=== PATIENT | male | born 1975 | race African-American/Black ===

== ENCOUNTER 2016-12-16 15:43 | Emergency (ER) | payer SELFPAY ==
[~2016-12-16] VITALS: Ht 175.3 cm; Wt 75.3 kg
--- NOTE | 2016-12-16 16:14 | RAD ---
Portable chest, 12/16/2016: History: Chest pain and weakness The heart size and pulmonary vascularity are normal. No pulmonary infiltrates are seen. There is no evidence of pleural fluid. IMPRESSION: No acute cardiopulmonary abnormality is detected.
[2016-12-16 16:57] LABS: BASO # 0.1 x10^3/uL (0.0-0.2); BASO % 2 % (0-3); EOS % 9 % (0-3); HEMATOCRIT 42.7 % (39.0-53.0); HEMOGLOBIN 14.5 g/dL (13.0-17.5); LYMPH # 1.8 x10^3/uL (1.0-4.8); LYMPH % 35 % (24-48); MEAN CORPUSCULAR HEMOGLOBIN 30 pg (25-35); MEAN CORPUSCULAR HGB CONC 34 g/dL (31-37); MEAN CORPUSCULAR VOLUME 89 fL (79-100); MONO % 6 % (0-9); NEUT % 48 % (31-73); PLATELET COUNT 210 x10^3/uL (140-400); RED BLOOD COUNT 4.81 x10^6/uL (4.30-5.70); RED CELL DISTRIBUTION WIDTH 12.6 % (11.5-14.5); WHITE BLOOD COUNT 5.2 x10^3/uL (4.0-11.0)
[2016-12-16 17:08] LABS: CALCIUM 10.1 mg/dL (8.5-10.1); CREATININE 1.1 mg/dL (0.7-1.3); GFR 73.1
--- NOTE | 2016-12-16 17:33 | RAD ---
PROCEDURE CT scan of the head without contrast 12/16/2016 HISTORY Dizziness since earlier today. TECHNIQUE Unenhanced contiguous, 5 millimeter axial sections were obtained through the head. One or more of the following individualized dose reduction techniques were utilized for this study: 1. Automated exposure control. 2. Adjustment of the mA and/or kV according to patient size. 3. Use of iterative reconstruction technique. FINDINGS The ventricles and sulci are within normal limits in size and configuration. No area of abnormal attenuation is seen involving the brain parenchyma. No extra-axial fluid collection is seen. No skull fracture is noted. IMPRESSION Negative study. Electronically signed by: Biju Olson MD (Dec 16, 2016 17:31:44)
[2016-12-16 17:36] LABS: OBC FLU VALID
[2016-12-16] MEDS ORDERED: METOCLOPRAMIDE HCL 10 MG/2 ML VIAL. IV ONE (17:45)
[2016-12-16] MEDS ORDERED: IV NORMAL SALINE 1000ML BAG 1,000 ML IV ONE (17:45)
[2016-12-16] MEDS ORDERED: DIPHENHYDRAMINE 50 MG/ML VIAL IVP ONE (17:45)
[2016-12-16] MEDS ORDERED: DEXAMETHASONE SOD PHOS 20 MG/5 ML VIAL. IV ONE (17:45)
[2016-12-16] MEDS ORDERED: KETOROLAC TROMETHAMINE 30 MG/ML SYRINGE. IV ONE (17:45)
--- NOTE | 2016-12-16 18:44 | PHYS DOC ---
Past Medical History Past Medical History: Diabetes-Type II, High Cholesterol, Hypertension Past Surgical History: No Surgical History Alcohol Use: Occasionally Drug Use: None Adult General Chief Complaint Chief Complaint: CHEST PAIN HPI HPI 41-year-old male who is coming in with significant headache and dizziness for the last several days. Daughter at bedside states the patient's been seen multiple times for this complaint. She has had imaging multiple times. He states his symptoms really haven't improved and have been there for the last year. He denies any trauma and he states he does have significant dizziness with movement. He denies any fever or chills. He denies any neck tenderness. He has history of HTN and DM-II for which he takes medications for. Review of Systems Review of Systems Constitutional: Denies fever or chills [] Eyes: Denies change in visual acuity, redness, or eye pain [] HENT: Denies nasal congestion or sore throat [] Respiratory: Denies cough or shortness of breath [] Cardiovascular: No additional information not addressed in HPI [] GI: Denies abdominal pain, has nausea, has vomiting, denies bloody stools or diarrhea [] : Denies dysuria or hematuria [] Musculoskeletal: Denies back pain or joint pain [] Integument: Denies rash or skin lesions [] Neurologic: Has headache, denies focal weakness or sensory changes [] Endocrine: Denies polyuria or polydipsia [] Current Medications Current Medications Current Medications Medications (Trade) Dose Ordered Sig/Rosaura Start Time Stop Time Status Last Admin Dose Admin Dexamethasone Sodium Phosphate (Decadron) 10 mg 1X ONCE 12/16/16 17:45 12/16/16 17:46 DC 12/16/16 18:10 10 MG Diphenhydramine HCl (Benadryl) 25 mg 1X ONCE 12/16/16 17:45 12/16/16 17:46 DC 12/16/16 18:10 25 MG Ketorolac Tromethamine (Toradol) 30 mg 1X ONCE 12/16/16 17:45 12/16/16 17:46 DC 12/16/16 18:09 30 MG Meclizine HCl (Antivert) 50 mg 1X ONCE 12/16/16 18:45 12/16/16 18:46 DC 12/16/16 19:00 50 MG Metoclopramide HCl 10 mg 10 mg 1X ONCE 12/16/16 17:45 12/16/16 17:46 DC 12/16/16 18:10 10 MG Sodium Chloride (Iv Sodium Chloride 0.9% 1000ml Bag) 1,000 ml @ 1,000 mls/hr 1X ONCE 12/16/16 17:45 12/16/16 18:44 DC 12/16/16 17:45 1,000 MLS/HR Allergies Allergies Allergies Coded Allergies Type Severity Reaction Last Updated Verified No Known Drug Allergies 12/16/16 No Physical Exam Physical Exam Constitutional: Well developed, well nourished, no acute distress, non-toxic appearance. [] HENT: Normocephalic, atraumatic, bilateral external ears normal, oropharynx moist, no oral exudates, nose normal. [] Eyes: PERRLA, EOMI, conjunctiva normal, no discharge. [] Neck: Normal range of motion, no tenderness, supple, no stridor. [] Cardiovascular:Heart rate regular rhythm, no murmur [] Lungs & Thorax: Bilateral breath sounds clear to auscultation [] Abdomen: Bowel sounds normal, soft, no tenderness, no masses, no pulsatile masses. [] Skin: Warm, dry, no erythema, no rash. [] Back: No tenderness, no CVA tenderness. [] Extremities: No tenderness, no cyanosis, no clubbing, ROM intact, no edema. [] Neurologic: Alert and oriented X 3, normal motor function, normal sensory function, no focal deficits noted. [] Psychologic: Affect normal, judgement normal, mood normal. [] Current Patient Data Vital Signs Vital Signs Date Time Temp Pulse Resp B/P Pulse Ox O2 Delivery O2 Flow Rate FiO2 12/16/16 16:45 97.7 80 28 146/75 100 Room Air 97.7 Lab Values Laboratory Tests Test 12/16/16 16:45 White Blood Count 5.2x10^3/uL (4.0-11.0) Red Blood Count 4.81x10^6/uL (4.30-5.70) Hemoglobin 14.5g/dL (13.0-17.5) Hematocrit 42.7% (39.0-53.0) Mean Corpuscular Volume 89fL (79-100) Mean Corpuscular Hemoglobin 30pg (25-35) Mean Corpuscular Hemoglobin Concent 34g/dL (31-37) Red Cell Distribution Width 12.6% (11.5-14.5) Platelet Count 210x10^3/uL (140-400) Neutrophils (%) (Auto) 48% (31-73) Lymphocytes (%) (Auto) 35% (24-48) Monocytes (%) (Auto) 6% (0-9) Eosinophils (%) (Auto) 9% (0-3) H Basophils (%) (Auto) 2% (0-3) Neutrophils # (Auto) 2.5x10^3uL (1.8-7.7) Lymphocytes # (Auto) 1.8x10^3/uL (1.0-4.8) Monocytes # (Auto) 0.3x10^3/uL (0.0-1.1) Eosinophils # (Auto) 0.5x10^3/uL (0.0-0.7) Basophils # (Auto) 0.1x10^3/uL (0.0-0.2) Sodium Level 140mmol/L (136-145) Potassium Level 3.0mmol/L (3.5-5.1) L Chloride Level 100mmol/L (98-107) Carbon Dioxide Level 26mmol/L (21-32) Anion Gap 14 (6-14) Blood Urea Nitrogen 13mg/dL (8-26) Creatinine 1.1mg/dL (0.7-1.3) Estimated GFR (Cockcroft-Gault) 73.1 Glucose Level 129mg/dL (70-99) H Calcium Level 10.1mg/dL (8.5-10.1) Troponin I Quantitative < 0.017ng/mL (0.000-0.055) Influenza Type A Antigen Negative (NEGATIVE) Influenza Type B Antigen Negative (NEGATIVE) Laboratory Tests 12/16/16 16:45 Laboratory Tests 12/16/16 16:45 EKG EKG EKG as interpreted by me shows sinus rhythm with a rate of 82 bpm. There are no acute ST findings on this EKG. Intervals are normal. Radiology/Procedures Radiology/Procedures CT of the head without contrast demonstrated the following: The ventricles and sulci are within normal limits in size and configuration. No area of abnormal attenuation is seen involving the brain parenchyma. No extra-axial fluid collection is seen. No skull fracture is noted. One view of the chest did not demonstrate any acute cardiopulmonary abnormality Course & Med Decision Making Course & Med Decision Making Pertinent Labs and Imaging studies reviewed. (See chart for details) This 41-year-old male with subjective vertigo complaints and significant headache had a laboratory workup that was essentially unremarkable. CT of his head was also obtained that was negative. I treated the patient with a traditional migraine cocktail as well as fluids and meclizine and he felt significantly improved. He was successfully intubated on the department. Patient has been multiple worked up multiple times for similar complaints. I counseled him extensively that his symptoms are needing likely significant workup with either ENT or neurology and will require close follow-up. Additionally admission was offered but the patient is declining states he will follow closely with his primary care doctor. I do believe there is some degree of neurologic abnormality going on but there is no life-threatening cause to his symptoms and I do not believe he is having any strokelike symptoms at this time. He ambulates without difficulty and is not unsteady with his gait is NIH stroke scale is negative. His EKG was unremarkable. Upon my final reassessment, the patient is in no acute distress and feels significantly improved. I'll be discharging him with a course of meclizine and Zofran with the instructions provided above. He is very agreeable with this plan and will be discharged without incident. Dragon Disclaimer Dragon Disclaimer This electronic medical record was generated, in whole or in part, using a voice recognition dictation system. Departure Departure Impression: Primary Impression: Vertigo Additional Impression: Headache Disposition: HOME, SELF-CARE Admitting Physician: Other Condition: STABLE Referrals: [facility] ELECTROCARDIOGRAPH REPAIRER (PCP) Patient Instructions: Vertigo, [id number] Additional Instructions: Please follow up with your primary doctor in the next 2-3 days regarding your vertigo symptoms. Return to the ER if you develop any worsening of your symptoms. Scripts Ondansetron Hcl (Zofran)4 Mg Tablet4 Mg PO BID PRN NAUSEA/VOMITING #10 TAB Prov:SONALI REES DO 12/16/16 Meclizine Hcl 25 Mg [id number] Mg PO 1X #10 TAB Prov:SONALI REES DO 12/16/16 Problem Qualifiers SONALI REES DO Dec 16, 2016 18:44
[2016-12-16] MEDS ORDERED: MECLIZINE HCL 12.5 MG TABLET. PO ONE (18:45)
[2016-12-16 19:52] VITALS: BP 136/71
[2016-12-16] MEDS ORDERED: MECL25TA3 PO (20:08)
[2016-12-16] MEDS ORDERED: ONDA4TAB7 PO (20:08)
--- NOTE | 2016-12-17 10:26 | EKG ---
[facility] [address] [place] [address] Test Date: 2016-12-16 Test Time: 15:49:04 Pat Name: SERA CONDE Department: Room: Gender: M Burglar Alarm Mechanic: : 1975 Requested By: SONALI REES Order Number: [id number] Reading MD: David Crane Measurements Intervals [place] Rate: 82 P: 23 WI: 178 QRS: 44 QRSD: 90 T: 34 QT: 362 QTc: 426 Interpretive Statements SINUS RHYTHM LEFT ATRIAL ABNORMALITY NONSPECIFIC ST-T WAVE CHANGES. RI6.01 Unconfirmed report No previous ECG available for comparison Electronically Signed On 12-19-2016 13:59:43 BANQUET COOK by David Crane
== END 2016-12-16 20:14 | disposition home or self-care (01) ==
LOC: ER 15:43
DX: R51 Headache (principal); R42 Dizziness and giddiness; E11.9 Type 2 diabetes mellitus without complications; E78.00 Pure hypercholesterolemia, unspecified; I10 Essential (primary) hypertension
CPT/HCPCS: 36415; 70450; 71010; 80048; 84484; 85027; 87804; 93005; 96361; 96374; 96375; 99285; J1100; J1200; J1885; J2765; J7030; J8597

== ENCOUNTER 2018-04-24 17:34 | Inpatient (IN) | payer SELFPAY ==
[2018-04-24] MEDS: ASPIRIN 325 MG TABLET PO (17:28)
[2018-04-24 17:30] LABS: ADD MAN DIFF? NO
[2018-04-24 17:42] LABS: BASO # 0.1 x10^3/uL (0.0-0.2); BASO % 1 % (0-3); EOS # 0.4 x10^3/uL (0.0-0.7); EOS % 6 % (0-3); HEMATOCRIT 41.9 % (39.0-53.0); HEMOGLOBIN 14.5 g/dL (13.0-17.5); LYMPH % 29 % (24-48); MEAN CORPUSCULAR HEMOGLOBIN 31 pg (25-35); MEAN CORPUSCULAR HGB CONC 35 g/dL (31-37); MEAN CORPUSCULAR VOLUME 90 fL (79-100); MONO # 0.4 x10^3/uL (0.0-1.1); MONO % 6 % (0-9); NEUT % 59 % (31-73); PLATELET COUNT 183 x10^3/uL (140-400); RED BLOOD COUNT 4.66 x10^6/uL (4.30-5.70); RED CELL DISTRIBUTION WIDTH 12.7 % (11.5-14.5); WHITE BLOOD COUNT 6.9 x10^3/uL (4.0-11.0)
[2018-04-24 17:55] LABS: BILIRUBIN,URINE NEGATIVE (NEG); CLARITY,URINE CLEAR; COLOR,URINE YELLOW; GLUCOSE,URINE NEGATIVE (NEG); NITRITE,URINE NEGATIVE (NEG); PH,URINE 6.5; PROTEIN,URINE NEGATIVE (NEG-TRACE); UROBILINOGEN,URINE 0.2 mg/dL (0.2 mg/dL)
[2018-04-24] MEDS: NITROGLYCERIN SUBLINGUAL 0.4 MG BOTTLE OF 25. SL ×2 (18:00→18:16)
[2018-04-24 18:05] LABS: BACTERIA,URINE FEW /HPF (0-FEW); RBC,URINE 0 /HPF (0-2); SQUAMOUS EPITHELIAL CELL,UR OCC /LPF
[2018-04-24 18:19] LABS: INR 0.9 (0.8-1.1); PROTHROMBIN TIME PATIENT 12.1 SEC (11.7-14.0)
[2018-04-24 18:22] LABS: BLOOD UREA NITROGEN 13 mg/dL (8-26); BUN/CREATININE RATIO 13 (6-20); GFR 98.2
[2018-04-24 18:23] LABS: D-DIMER 0.49 ug/mlFEU (0.00-0.50)
[2018-04-24 18:29] LABS: ALK PHOS 102 U/L (46-116); ALT (SGPT) 149 U/L (16-63)
[2018-04-24 18:31] LABS: TROPONINI < 0.017 ng/mL (0.000-0.055)
[2018-04-24] MEDS: MORPHINE SULFATE 4 MG/ML DISP.SYRIN. IV ×3 (18:43→22:50)
[2018-04-24 18:58] LABS: ANION GAP 12 (6-14); CALCIUM 8.7 mg/dL (8.5-10.1); CARBON DIOXIDE 24 mmol/L (21-32); CHLORIDE 98 mmol/L (98-107); GLUCOSE 142 mg/dL (70-99); POTASSIUM 3.9 mmol/L (3.5-5.1); SODIUM 134 mmol/L (136-145)
[2018-04-24 19:03] LABS: ALBUMIN 4.1 g/dL (3.4-5.0); ALBUMIN/GLOBULIN RATIO 1.1 (1.0-1.7); AST (SGOT) 170 U/L (15-37); LIPASE 377 U/L (73-393); TOTAL BILIRUBIN 0.4 mg/dL (0.2-1.0)
[2018-04-24 19:05] LABS: TOTAL PROTEIN 7.9 g/dL (6.4-8.2)
[2018-04-24 19:14] LABS: CREATINE KINASE 141 U/L (39-308)
[2018-04-24 19:15] LABS: CKMB MASS < 0.5 ng/mL (0.0-3.6)
[2018-04-24 19:17] LABS: NT-PRO BNP 13 pg/mL (0-124)
[2018-04-24] MEDS ORDERED: CONTRAST GIVEN. MC (20:00)
[2018-04-24] MEDS: IOHEXOL 300 MG/ML 100ML VIAL. IV (20:01)
[2018-04-24] MEDS ORDERED: ONDANSETRON PF 4 MG/2 ML VIAL. IV (21:00)
[2018-04-24 22:47] LABS: POC GLUCOSE 152 mg/dL (70-99)
[2018-04-25] MEDS: MORPHINE SULFATE 4 MG/ML DISP.SYRIN. IV ×5 (01:14→22:42)
[2018-04-25 03:52] LABS: POC GLUCOSE 146 mg/dL (70-99)
[2018-04-25] MEDS ORDERED: diphenhydrAMINE HCL 25 MG CAPSULE PO (06:45)
[2018-04-25 07:56] LABS: POC GLUCOSE 149 mg/dL (70-99)
[2018-04-25] MEDS ORDERED: ACETAMINOPHEN/CODEINE 300/30MG TABLET. PO (09:00)
[2018-04-25] MEDS ORDERED: ONDANSETRON PF 4 MG/2 ML VIAL. IV (09:00)
[2018-04-25] MEDS ORDERED: ACETAMINOPHEN 500 MG TABLET PO (09:00)
[2018-04-25] MEDS ORDERED: NICOTINE 21MG PATCH. TD (09:00)
[2018-04-25] MEDS ORDERED: chlordiazePOXIDE HCL 25 MG CAPSULE PO (09:00)
[2018-04-25] MEDS: fentaNYL PF VIAL 100 MCG/2 ML VIAL IV ×3 (09:13→15:37)
[2018-04-25] MEDS ORDERED: diphenhydrAMINE ORAL ELIXIR 12.5 MG/5 ML ML PO (09:14)
[2018-04-25] MEDS ORDERED: cloNIDine HCL 0.1 MG TABLET PO (09:15)
[2018-04-25] MEDS ORDERED: diphenhydrAMINE 50 MG/ML VIAL IVP (09:15)
[2018-04-25] MEDS ORDERED: HALOPERIDOL LACTATE 5 MG/ML VIAL. IVP (09:15)
[2018-04-25 09:54] LABS: CHOLESTEROL 151 mg/dL (0-200); HDLC 27 mg/dL (40-60); NON-HDL CHOLESTEROL 124 mg/dL (0-129)
[2018-04-25] MEDS: MULTIVIT INFUSN,ADULT 4,VIT K 10 ML, THIAMINE 100 MG, FOLIC ACID 1 MG in IV NORMAL SALI... IV (10:00)
[2018-04-25 10:35] LABS: TRIGLYCERIDES 604 mg/dL (0-150); VLDLC 121 mg/dL (0-40)
[2018-04-25 10:36] LABS: CHOLESTEROL/HDL RATIO 5.6
[2018-04-25 12:00] LABS: POC GLUCOSE 177 mg/dL (70-99)
[2018-04-25] MEDS: REGADENOSON 0.4 MG/5 ML DISP.SYRIN. IV (13:03)
[2018-04-25] MEDS ORDERED: LIDO:MAALOX 1:1 20 ML SINGLE DOSE. PO (15:30)
[2018-04-25] MEDS: PANTOPRAZOLE 40 MG TABLET.DR. PO (16:00)
[2018-04-25 17:16] LABS: POC GLUCOSE 201 mg/dL (70-99)
[2018-04-25 18:09] LABS: HEPATITIS B SURFACE AG Nonreactive (Nonreactive)
[2018-04-25 18:38] LABS: HEPATITIS C AB Nonreactive (Nonreactive)
[2018-04-25] MEDS: diphenhydrAMINE HCL 25 MG CAPSULE PO (18:58)
[2018-04-26] MEDS: MORPHINE SULFATE 4 MG/ML DISP.SYRIN. IV ×3 (01:23→07:48)
[2018-04-26] MEDS: diphenhydrAMINE HCL 25 MG CAPSULE PO ×2 (03:04→10:58)
[2018-04-26 07:35] LABS: POC GLUCOSE 138 mg/dL (70-99)
[2018-04-26] MEDS: PANTOPRAZOLE 40 MG TABLET.DR. PO (07:48)
[2018-04-26 08:44] LABS: BARBITURATES NEG (NEG); BENZODIAZEPINES POS (NEG); CANNABINOIDS NEG (NEG); COCAINE NEG (NEG); METHADONE NEG (NEG); OPIATES POS (NEG); PHENCYCLIDINE NEG (NEG)
[2018-04-26 08:56] LABS: AMPHETAMINE/METHAMPHETAMINE NEG (NEG); ETHANOL, URINE NEG (NEG)
[2018-04-26] MEDS: MULTIVIT INFUSN,ADULT 4,VIT K 10 ML, THIAMINE 100 MG, FOLIC ACID 1 MG in IV NORMAL SALI... IV (09:19)
[2018-04-26 11:12] LABS: ALBUMIN 2.6 g/dL (3.4-5.0); ALK PHOS 78 U/L (46-116); ALT (SGPT) 79 U/L (16-63); AST (SGOT) 53 U/L (15-37); DIRECT BILIRUBIN 0.2 mg/dL (0.0-0.2); TOTAL BILIRUBIN 0.5 mg/dL (0.2-1.0); TOTAL PROTEIN 6.1 g/dL (6.4-8.2)
[2018-04-26 12:09] LABS: POC GLUCOSE 150 mg/dL (70-99)
[2018-04-26] MEDS: IV RINGERS,LACTATED 1000ML 1,000 ML IV ×2 (12:26→14:30)
[2018-04-26] MEDS ORDERED: PROPOFOL 20 ML IV (12:43)
[2018-04-26] MEDS ORDERED: LIDOCAINE 2% PF Vial for OR 5 ML VIAL. (12:43)
[2018-04-26] MEDS ORDERED: MECLIZINE HCL 50 MG PO (12:45)
[2018-04-26] MEDS ORDERED: ONDANSETRON ODT 4 MG TAB.RAPDIS. PO (12:45)
[2018-04-26] MEDS: ASPIRIN ENTERIC COATED 81 MG TABLET.DR. PO (15:15)
[2018-04-26] MEDS: amLODIPine BESYLATE 5 MG TABLET PO (15:20)
[2018-04-26] MEDS: HYDROcodone/APAP 5/325MG 1 TAB TABLET PO ×2 (15:21→21:32)
[2018-04-26 17:23] LABS: POC GLUCOSE 190 mg/dL (70-99)
[2018-04-26] MEDS: ATORVASTATIN CALCIUM 40 MG TABLET. PO (20:10)
[2018-04-26] MEDS: POLYETHYLENE GLYCOL 3350 17 GM PACKET. PO (20:12)
[2018-04-26 20:41] LABS: POC GLUCOSE 160 mg/dL (70-99)
[2018-04-27] MEDS: fentaNYL PF VIAL 100 MCG/2 ML VIAL IV (07:42)
[2018-04-27 08:29] LABS: POC GLUCOSE 119 mg/dL (70-99)
[2018-04-27] MEDS: SINCALIDE 1.5 MCG in IV NORMAL SALINE 50ML 30 ML IV (08:51)
[2018-04-27] MEDS: FENOFIBRATE,MICRONIZED 134 MG CAPSULE PO (09:46)
[2018-04-27] MEDS: amLODIPine BESYLATE 5 MG TABLET PO (09:46)
[2018-04-27] MEDS: OMEGA-3 FATTY ACIDS/FISH OIL 1,000 MG CAPSULE. PO (09:46)
[2018-04-27] MEDS: ASPIRIN ENTERIC COATED 81 MG TABLET.DR. PO (09:46)
[2018-04-27] MEDS: PANTOPRAZOLE 40 MG TABLET.DR. PO (09:46)
[2018-04-27] MEDS: MULTIVIT INFUSN,ADULT 4,VIT K 10 ML, THIAMINE 100 MG, FOLIC ACID 1 MG in IV NORMAL SALI... IV (09:47)
[2018-04-27] MEDS: LOSARTAN POTASSIUM 25 MG TABLET. PO (09:47)
[2018-04-27] MEDS: HYDROcodone/APAP 5/325MG 1 TAB TABLET PO ×2 (09:51→18:59)
[2018-04-27] MEDS ORDERED: BISACODYL 5 MG TABLET.DR. PO (11:30)
[2018-04-27] MEDS: POLYETHYLENE GLYCOL 3350 17 GM PACKET. PO (12:00)
[2018-04-27 12:15] LABS: POC GLUCOSE 167 mg/dL (70-99)
[2018-04-27 17:16] LABS: POC GLUCOSE 141 mg/dL (70-99)
[2018-04-27] MEDS: ATORVASTATIN CALCIUM 40 MG TABLET. PO (20:16)
[2018-04-27] MEDS: diphenhydrAMINE HCL 25 MG CAPSULE PO (20:17)
[2018-04-27 20:45] LABS: POC GLUCOSE 118 mg/dL (70-99)
[2018-04-28 05:32] LABS: ADD MAN DIFF? NO
[2018-04-28 05:46] LABS: BASO % 1 % (0-3); EOS # 0.6 x10^3/uL (0.0-0.7); EOS % 11 % (0-3); HEMOGLOBIN 13.6 g/dL (13.0-17.5); LYMPH # 1.4 x10^3/uL (1.0-4.8); LYMPH % 28 % (24-48); MEAN CORPUSCULAR HEMOGLOBIN 31 pg (25-35); MEAN CORPUSCULAR HGB CONC 34 g/dL (31-37); MEAN CORPUSCULAR VOLUME 91 fL (79-100); MONO # 0.4 x10^3/uL (0.0-1.1); MONO % 8 % (0-9); NEUT # 2.6 x10^3uL (1.8-7.7); NEUT % 52 % (31-73); PLATELET COUNT 188 x10^3/uL (140-400)
[2018-04-28 06:15] LABS: ALBUMIN 3.2 g/dL (3.4-5.0); ALBUMIN/GLOBULIN RATIO 0.7 (1.0-1.7); ALK PHOS 172 U/L (46-116); ALT (SGPT) 244 U/L (16-63); ANION GAP 10 (6-14); AST (SGOT) 186 U/L (15-37); BLOOD UREA NITROGEN 11 mg/dL (8-26); BUN/CREATININE RATIO 10 (6-20); CALCIUM 9.2 mg/dL (8.5-10.1); CARBON DIOXIDE 27 mmol/L (21-32); CHLORIDE 102 mmol/L (98-107); CREATININE 1.1 mg/dL (0.7-1.3); GLUCOSE 141 mg/dL (70-99); SODIUM 139 mmol/L (136-145); TOTAL BILIRUBIN 0.5 mg/dL (0.2-1.0)
[2018-04-28 08:25] LABS: POC GLUCOSE 146 mg/dL (70-99)
[2018-04-28] MEDS: FOLIC ACID 1 MG TABLET. PO (08:33)
[2018-04-28] MEDS: THIAMINE 100 MG TABLET. PO (08:33)
[2018-04-28] MEDS: OMEGA-3 FATTY ACIDS/FISH OIL 1,000 MG CAPSULE. PO (08:33)
[2018-04-28] MEDS: FENOFIBRATE,MICRONIZED 134 MG CAPSULE PO (08:34)
[2018-04-28] MEDS: ASPIRIN ENTERIC COATED 81 MG TABLET.DR. PO (08:34)
[2018-04-28] MEDS: PANTOPRAZOLE 40 MG TABLET.DR. PO (08:34)
[2018-04-28] MEDS: LOSARTAN POTASSIUM 25 MG TABLET. PO (08:34)
[2018-04-28] MEDS: POLYETHYLENE GLYCOL 3350 17 GM PACKET. PO (08:35)
[2018-04-28] MEDS: MULTIVITAMIN with MINERAL TABLET. PO (08:35)
[2018-04-28] MEDS: amLODIPine BESYLATE 5 MG TABLET PO (08:35)
[2018-04-28] MEDS: HYDROcodone/APAP 5/325MG 1 TAB TABLET PO (09:51)
[2018-04-28 12:01] LABS: POC GLUCOSE 184 mg/dL (70-99)
== END 2018-04-28 16:00 | disposition home or self-care (01) | DRG 392 ==
LOC: ER 17:34 → 6 SOUTH 20:55
PROC: 0DJ08ZZ Inspection of Upper Intestinal Tract, Via Natural or Artificial Opening Endoscopic (ICD-10-PCS; principal; 2018-04-26 13:30)
DX: K29.60 Other gastritis without bleeding (principal); B15.9 Hepatitis A without hepatic coma; K80.20 Calculus of gallbladder without cholecystitis without obstruction; K21.9 Gastro-esophageal reflux disease without esophagitis; R07.89 Other chest pain; K57.30 Diverticulosis of large intestine without perforation or abscess without bleeding; E78.00 Pure hypercholesterolemia, unspecified; I10 Essential (primary) hypertension; F17.210 Nicotine dependence, cigarettes, uncomplicated; K70.9 Alcoholic liver disease, unspecified; E78.5 Hyperlipidemia, unspecified; E11.9 Type 2 diabetes mellitus without complications; K76.0 Fatty (change of) liver, not elsewhere classified; F41.9 Anxiety disorder, unspecified; Z82.49 Family history of ischemic heart disease and other diseases of the circulatory system; Z80.3 Family history of malignant neoplasm of breast
CPT/HCPCS: 36415; 71045; 71275; 74177; 76700; 78226; 78452; 80053; 80061; 80076; 80307; 81001; 82553; 82962; 83690; 83735; 83880; 84484; 85025; 85379; 85610; 86803; 87340; 93005; 93017; 93306; 96374; 96375; 96376; 99285; 99285-25; 99406; A9500; A9537; J2001; J2270; J2704; J2785; J2805; J3010; J7030; J7120; Q0163; Q9967

== ENCOUNTER 2020-03-29 06:31 | Emergency (ER) | payer OTHER ==
[~2020-03-29] VITALS: Ht 175.3 cm; Wt 72.2 kg
[~2020-03-29 06:31] MED LIST: AMLO5TAB10 PO; ASPI81TA50 PO; ATOR40TA59 PO; FENO160T PO; LOSA25TA54 PO; MECL-75 PO; OMEG1CAP27 PO; ONDA4TAB7 PO
[2020-03-29] MEDS ORDERED: IV NORMAL SALINE 1000ML BAG 1,000 ML IV ONE (07:00)
--- NOTE | 2020-03-29 07:11 | PHYS DOC ---
Past Medical History Past Medical History: Diabetes-Type II, High Cholesterol, Hypertension Past Surgical History: No Surgical History Smoking Status: Current Every Day Smoker Additional Information: 10/19 PPD X36 YEARS Alcohol Use: Occasionally Drug Use: None General Adult EDM: Chief Complaint: ABDOMINAL PAIN HPI: HPI: Patient is a 44 year old male who presented to ER today for evaluation of epigastric abdominal pain that wrapped around his flanks area since this morning. Patient denies any nausea vomiting, no fever. Patient denies any history of pain like this in the past. Patient denies any abdominal surgery. Patient has history of hypertension and diabetes. Review of Systems: Review of Systems: Constitutional: Denies fever or chills. [] Eyes: Denies change in visual acuity. [] HENT: Denies nasal congestion or sore throat. [] Respiratory: Denies cough or shortness of breath. [] Cardiovascular: Denies chest pain or edema. [] GI: Positive for abdominal pain, denies nausea, vomiting, bloody stools or d iarrhea. [] : Denies dysuria. [] Musculoskeletal: Denies back pain or joint pain. [] Integument: Denies rash. [] Neurologic: Denies headache, focal weakness or sensory changes. [] Endocrine: Denies polyuria or polydipsia. [] Lymphatic: Denies swollen glands. [] Psychiatric: Denies depression or anxiety. [] Heart Score: Risk Factors: Risk Factors: DM, Current or recent (<one month) smoker, HTN, HLP, family history of CAD, obesity. Risk Scores: Score 0 - 3: 2.5% MACE over next 6 weeks - Discharge Home Score 4 - 6: 20.3% MACE over next 6 weeks - Admit for Clinical Observation Score 7 - 10: 72.7% MACE over next 6 weeks - Early Invasive Strategies Current Medications: Current Medications Medications (Trade) Dose Ordered Sig/Rosaura Start Time Stop Time Status Last Admin Dose Admin Morphine Sulfate (Morphine Sulfate) 4 mg 1X ONCE 03/29/20 07:30 03/29/20 07:31 Ondansetron HCl (Zofran) 4 mg 1X ONCE 03/29/20 07:30 03/29/20 07:31 Sodium Chloride 1,000 ml @ 1,000 mls/hr 1X ONCE 03/29/20 07:00 6/14/20 07:59 Allergies: Allergies: Allergies Coded Allergies Type Severity Reaction Last Updated Verified No Known Drug Allergies 04/26/18 No Physical Exam: PE: Constitutional: Well developed, well nourished, no acute distress, non-toxic appearance. [] HENT: Normocephalic, atraumatic, bilateral external ears normal, oropharynx moist, no oral exudates, nose normal. [] Eyes: PERRLA, EOMI, conjunctiva normal, no discharge. [] Neck: Normal range of motion, no tenderness, supple, no stridor. [] Cardiovascular:Heart rate regular rhythm, no murmur [] Lungs & Thorax: Bilateral breath sounds clear to auscultation [] Abdomen: Bowel sounds normal, soft, there is tenderness to palpation in the epigastric area and left upper quadrant abdominal area, no rebound, no guarding, no masses, no pulsatile masses. [] Skin: Warm, dry, no erythema, no rash. [] Back: No tenderness, no CVA tenderness. [] Extremities: No tenderness, no cyanosis, no clubbing, ROM intact, no edema. [] Neurologic: Alert and oriented X 3, normal motor function, normal sensory function, no focal deficits noted. [] Psychologic: Affect normal, judgement normal, mood normal. [] Current Patient Data: Vital Signs: Vital Signs Date Time Temp Pulse Resp B/P (MAP) Pulse Ox O2 Delivery O2 Flow Rate FiO2 03/29/20 06:45 96.8 67 16 151/94 (113) 100 Room Air 96.8 EKG: EKG: [] Radiology/Procedures: Radiology/Procedures: [][facility] [address] [place] [address] IMAGING REPORT Signed PATIENT: SERA CONDE ACCOUNT: [id number] : 1975 LOCATION: ER AGE: 44 SEX: M EXAM STATUS: REG ER ORD. PHYSICIAN: RELL RIVAS DO REASON: abdominal pain PROCEDURE: CT ABD PELV W/ IV CONTRST ONLY EXAM: CT Abdomen and Pelvis with IV contrast INDICATION: Reason: abdominal pain / Spl. Instructions: IV OMNI 300 75 MLS / History: TECHNIQUE: Multi-detector row CT images were acquired from the lung bases through the abdomen and pelvis with the use of IV contrast. Sagittal and coronal images were acquired from the transaxial data. All CT scans performed at this facility utilize dose optimization techniques as appropriate to the exam, including the following: Automated exposure control and adjustment of the mA and/or KV according to patient size (this includes techniques or standardized protocols for targeted exams where dose is indication/reason for exam). IV CONTRAST: Administered ORAL CONTRAST: not given COMPARISON: CT abdomen and pelvis of 04/24/18 with IV contrast FINDINGS: LOWER CHEST: Unremarkable LIVER: Unremarkable BILIARY SYSTEM: Gallbladder is unremarkable. Bile ducts are not dilated. PANCREAS: Unremarkable SPLEEN: Unremarkable ADRENALS: Unremarkable KIDNEYS & URETERS: Unremarkable BLADDER: Anterior bladder wall thickening. REPRODUCTIVE ORGANS: Unremarkable GASTROINTESTINAL: The stomach and colon are unremarkable. The small bowel shows jejunal wall thickening. The appendix is normal. MESENTERY/PERITONEUM/RETROPERITONEUM: Unremarkable VASCULAR: Unremarkable LYMPH NODES: No adenopathy OSSEOUS & SOFT TISSUES: Unremarkable IMPRESSION: 1. Mild jejunal wall thickening, without findings of bowel obstruction or perforation. 2. Bladder wall thickening anteriorly may be an artifact of underdistension. Recommend correlation clinically. 3. Otherwise no acute findings in the abdomen or pelvis. Electronically signed by: Sera Arnold MD (03/29/2020 9:15 AM) [id number] DICTATED and SIGNED BY: SERA ARNOLD MD DATE: 03/29/20 0915 Course & Med Decision Making: Course & Med Decision Making Pertinent Labs and Imaging studies reviewed. (See chart for details) Patient is a 44-year-old male who was evaluated in the ER due to abdominal pain, lab work and CT scan did not show an acute problem, there is mild wall thickening at the jejunum area but that is not the area where the patient was hurt. Patient has diabetic history, we will discharge him home, he will need to follow-up with the GI doctor for further evaluation. Sesar Disclaimer: Dragon Disclaimer: This electronic medical record was generated, in whole or in part, using a voice recognition dictation system. Departure Departure Impression: Primary Impression: Abdominal pain Disposition: 01 HOME, SELF-CARE Condition: IMPROVED Referrals: [facility] BAND SAW FILER (PCP) please follow up with your doctor for a referral to a GI specialist or call the GI doctor provided for follow up next week. Patient Instructions: Abdominal Pain Additional Instructions: Thank you for visiting our Emergency Department. We appreciate you trusting us with your care. If any additional problems come up don't hesitate to return to visit us. Please follow up with your primary care provider so they can plan additional care if needed and know about the problem that you had. If symptoms worsen come back to the Emergency Department. Any concerning symptoms that start such as chest pain, shortness of air, weakness or numbness on one side of the body, running high fevers or any other concerning symptoms return to the ER. Scripts Dicyclomine Hcl (DICYCLOMINE HCL) 20 Mg Tablet 1 TAB PO QID, #30 TAB Prov: RELL RIVAS DO 03/29/20 Justicifation of Admission Dx: Justifications for Admission: Justification of Admission Dx: N/A RELL RIVAS DO Mar 29, 2020 07:11
[2020-03-29 07:27] LABS: BILIRUBIN,URINE NEGATIVE (NEG); CLARITY,URINE CLEAR; COLOR,URINE YELLOW; NITRITE,URINE NEGATIVE (NEG); PROTEIN,URINE NEGATIVE (NEG-TRACE)
[2020-03-29] MEDS ORDERED: MORPHINE SULFATE 4 MG/ML VIAL. IV ONE (07:30)
[2020-03-29] MEDS ORDERED: ONDANSETRON PF 4 MG/2 ML VIAL. IVP ONE (07:30)
[2020-03-29 07:36] LABS: BACTERIA,URINE FEW /HPF (0-FEW); RBC,URINE OCC /HPF (0-2); SQUAMOUS EPITHELIAL CELL,UR FEW /LPF; WBC,URINE 0 /HPF (0-4)
[2020-03-29 08:09] LABS: CALCIUM 9.1 mg/dL (8.5-10.1); GFR 97.3; POTASSIUM 4.3 mmol/L (3.5-5.1)
[2020-03-29 08:15] LABS: ALBUMIN 4.1 g/dL (3.4-5.0); ALBUMIN/GLOBULIN RATIO 1.2 (1.0-1.7); MAGNESIUM 1.8 mg/dL (1.8-2.4); TOTAL BILIRUBIN 0.4 mg/dL (0.2-1.0); TOTAL PROTEIN 7.4 g/dL (6.4-8.2)
[2020-03-29 08:21] LABS: BASO % 1 % (0-3); EOS # 0.4 x10^3/uL (0.0-0.7); EOS % 8 % (0-3); HEMATOCRIT 36.8 % (39.0-53.0); HEMOGLOBIN 12.9 g/dL (13.0-17.5); LYMPH # 1.1 x10^3/uL (1.0-4.8); LYMPH % 22 % (24-48); MEAN CORPUSCULAR HEMOGLOBIN 31 pg (25-35); MEAN CORPUSCULAR HGB CONC 35 g/dL (31-37); MEAN CORPUSCULAR VOLUME 90 fL (79-100); MONO # 0.3 x10^3/uL (0.0-1.1); MONO % 7 % (0-9); NEUT # 3.1 x10^3/uL (1.8-7.7); NEUT % 62 % (31-73); PLATELET COUNT 151 x10^3/uL (140-400); RED BLOOD COUNT 4.11 x10^6/uL (4.30-5.70); RED CELL DISTRIBUTION WIDTH 13.2 % (11.5-14.5); WHITE BLOOD COUNT 5.1 x10^3/uL (4.0-11.0)
[2020-03-29] MEDS ORDERED: CONTRAST GIVEN. MC PRN (08:45)
[2020-03-29] MEDS ORDERED: KETOROLAC 30 MG/ML VIAL. IVP ONE (08:45)
[2020-03-29] MEDS ORDERED: IOHEXOL 300 MG/ML 100ML VIAL. IV ONE (08:45)
--- NOTE | 2020-03-29 09:18 | RAD ---
EXAM: CT Abdomen and Pelvis with IV contrast INDICATION: Reason: abdominal pain / Spl. Instructions: IV OMNI 300 75 MLS / History: TECHNIQUE: Multi-detector row CT images were acquired from the lung bases through the abdomen and pelvis with the use of IV contrast. Sagittal and coronal images were acquired from the transaxial data. All CT scans performed at this facility utilize dose optimization techniques as appropriate to the exam, including the following: Automated exposure control and adjustment of the mA and/or KV according to patient size (this includes techniques or standardized protocols for targeted exams where dose is indication/reason for exam). IV CONTRAST: Administered ORAL CONTRAST: not given COMPARISON: CT abdomen and pelvis of 04/24/18 with IV contrast FINDINGS: LOWER CHEST: Unremarkable LIVER: Unremarkable BILIARY SYSTEM: Gallbladder is unremarkable. Bile ducts are not dilated. PANCREAS: Unremarkable SPLEEN: Unremarkable ADRENALS: Unremarkable KIDNEYS & URETERS: Unremarkable BLADDER: Anterior bladder wall thickening. REPRODUCTIVE ORGANS: Unremarkable GASTROINTESTINAL: The stomach and colon are unremarkable. The small bowel shows jejunal wall thickening. The appendix is normal. MESENTERY/PERITONEUM/RETROPERITONEUM: Unremarkable VASCULAR: Unremarkable LYMPH NODES: No adenopathy OSSEOUS & SOFT TISSUES: Unremarkable IMPRESSION: 1. Mild jejunal wall thickening, without findings of bowel obstruction or perforation. 2. Bladder wall thickening anteriorly may be an artifact of underdistension. Recommend correlation clinically. 3. Otherwise no acute findings in the abdomen or pelvis. Electronically signed by: Willie Arnold MD (03/29/2020 9:15 AM) [id number]
[2020-03-29] MEDS ORDERED: fentaNYL PF VIAL 100 MCG/2 ML VIAL IVP ONE (10:15)
[2020-03-29] MEDS ORDERED: fentaNYL PF VIAL 100 MCG/2 ML VIAL ONE (10:19)
[2020-03-29] MEDS ORDERED: DICY20TA3 PO (10:50)
[2020-03-29 11:00] VITALS: BP 139/80
== END 2020-03-29 12:09 | disposition home or self-care (01) ==
LOC: ER 06:31
DX: R10.13 Epigastric pain (principal); E11.9 Type 2 diabetes mellitus without complications; E78.00 Pure hypercholesterolemia, unspecified; I10 Essential (primary) hypertension; F17.200 Nicotine dependence, unspecified, uncomplicated
CPT/HCPCS: 36415; 74177; 80053; 81001; 83690; 83735; 85025; 96374; 96375; 99285; J1885; J2270; J2405; J3010; J7030; Q9967

== ENCOUNTER 2020-03-31 00:47 | Emergency (ER) | payer BC, OTHER ==
[~2020-03-31] VITALS: Ht 175.3 cm; Wt 74.5 kg
[~2020-03-31 00:47] MED LIST changes: +DICY20TA3 PO
[2020-03-31] MEDS ORDERED: ONDA4TAB12 PO (01:20)
[2020-03-31] MEDS ORDERED: ACET-704 PO (01:20)
--- NOTE | 2020-03-31 01:20 | PHYS DOC ---
Past Medical History Past Medical History: Diabetes-Type II, High Cholesterol, Hypertension Past Surgical History: No Surgical History Smoking Status: Current Every Day Smoker Alcohol Use: Occasionally Drug Use: None General Adult EDM: Chief Complaint: ABDOMINAL PAIN HPI: HPI: Patient is a 44 year old male who presents with complaint of continued abdominal pain diffusely. Patient states that pain is throughout his entire abdomen and he rates it at a 10 out of 10. Patient was seen here a little over 24 hours ago and states that he was prescribed Bentyl but has had no relief from the Bentyl. Blood work and CT imaging were performed which was unrevealing. Patient has not followed up with her primary care doctor as yet. Patient indicates that he has had no change in his symptoms. [] Review of Systems: Review of Systems: Constitutional: Denies fever or chills. [] Respiratory: Denies cough or shortness of breath. [] Cardiovascular: Denies chest pain or edema. [] GI: Complains of diffuse abdominal pain without vomiting or diarrhea. [] Musculoskeletal: Denies back pain or joint pain. [] Integument: Denies rash. [] Neurologic: Denies headache, focal weakness or sensory changes. [] Heart Score: Risk Factors: Risk Factors: DM, Current or recent (<one month) smoker, HTN, HLP, family history of CAD, obesity. Risk Scores: Score 0 - 3: 2.5% MACE over next 6 weeks - Discharge Home Score 4 - 6: 20.3% MACE over next 6 weeks - Admit for Clinical Observation Score 7 - 10: 72.7% MACE over next 6 weeks - Early Invasive Strategies Allergies: Allergies: Allergies Coded Allergies Type Severity Reaction Last Updated Verified No Known Drug Allergies 04/26/18 No Physical Exam: PE: Constitutional: Well developed, well nourished, no acute distress, non-toxic appearance. [] HENT: Normocephalic, atraumatic, bilateral external ears normal, oropharynx moist, no oral exudates, nose normal. [] Cardiovascular: Regular rate and rhythm [] Lungs & Thorax: Bilateral breath sounds clear to auscultation [] Abdomen: Bowel sounds normal, soft, with diffuse reported tenderness without guarding. [] Extremities: No tenderness, no cyanosis, no clubbing, ROM intact, no edema. [] Neurologic: Alert and oriented X 3, no focal deficits noted. [] EKG: EKG: [] Radiology/Procedures: Radiology/Procedures: [] Course & Med Decision Making: Course & Med Decision Making Pertinent Labs and Imaging studies reviewed. (See chart for details) [] Dragon Disclaimer: Dragon Disclaimer: This electronic medical record was generated, in whole or in part, using a voice recognition dictation system. Departure Departure Impression: Primary Impression: Abdominal pain Qualified Codes: R10.84 - Generalized abdominal pain Disposition: HOME, SELF-CARE Condition: STABLE Referrals: [facility]OSS UI PROGRAMMER (PCP) Patient Instructions: Abdominal Pain Additional Instructions: Follow-up with your primary care provider in the next 1 to 2 days. Additional evaluation with gastroenterology may be warranted. Scripts Acetaminophen With Codeine (TYLENOL WITH CODEINE #3 TABLET) 1 Each Tablet 1 TAB PO PRN Q6HRS PRN for PAIN, #12 TAB Prov: JONATHAN TELLEZ Jr. DO 03/31/20 Ondansetron (ONDANSETRON ODT) 4 Mg Tab.rapdis 1 TAB PO PRN Q6-8HRS PRN for NAUSEA, #15 TAB Prov: JONATHAN TELLEZ Jr. DO 03/31/20 Justicifation of Admission Dx: Justifications for Admission: Justification of Admission Dx: Comment: (Not applicable) JONATHAN TELLEZ Jr. DO Mar 31, 2020 01:20
[2020-03-31] MEDS ORDERED: HYDROcodone/APAP 7.5/325MG 1 TAB TABLET PO ONE (01:30)
[2020-03-31] MEDS ORDERED: DICYCLOMINE 20 MG/2 ML VIAL. IM ONE (01:30)
[2020-03-31 02:04] VITALS: BP 131/70
== END 2020-03-31 02:33 | disposition home or self-care (01) ==
LOC: ER 00:47
DX: R10.84 Generalized abdominal pain (principal); E11.9 Type 2 diabetes mellitus without complications; E78.00 Pure hypercholesterolemia, unspecified; I10 Essential (primary) hypertension; F17.200 Nicotine dependence, unspecified, uncomplicated
CPT/HCPCS: 96372; 99283; J0500